=== PATIENT | male | born 1970 | race Caucasian/White ===

== ENCOUNTER → 2017-02-22 | Outpatient (CLI) | payer BC ==
--- NOTE | 2017-02-22 17:59 | Diagnostic Imaging Report ---
PROCEDURE: MRI right joint lower extremity without contrast. TECHNIQUE: Multiplanar, multisequence non contrast-enhanced MRI of the right lower extremity was accomplished. INDICATION: Twisted knee getting off lawnmower. Medial pain. FINDINGS: There is a large joint effusion present. There is a large area of loss of articulating cartilage along the medial femoral condyle and tibial plateau. There is subcortical edema as well. No definite cortical bony fracture demonstrated. Hypertrophic bony changes are present causing some peripheral displacement of the medial meniscus. The medial meniscus shows the posterior horn to be shortened consistent with probable chronic tear or previous surgery. There are a few small fragments noted within the articulating space. There is a 7 mm area of focal edema noted along the medial femoral condyle which probably is associated with a microfracture of the cortex, though no displacement is seen. The lateral meniscus appears normal. The lateral femoral condyle and tibial plateau are normal. The anterior and posterior cruciate ligaments are intact. Medial collateral ligament and lateral collateral ligament complex are intact. The patella is in good alignment with the trochlea. The quadriceps tendon and patellar ligament appear normal. No popliteal cyst demonstrated. The surrounding muscles appear normal. IMPRESSION: 1. Findings are consistent with chronic advanced osteoarthritic disease of the medial compartment. Large area of loss of chondral cartilage. There is a focal edema noted along the mid weightbearing portion of the femoral condyle which is suspicious for microfractures of the cortex. No large cortical fractures. 2. The medial meniscus is abnormal with blunting and fraying along the margin. There are several small loose bodies noted. 3. Large joint effusion without evidence of popliteal cyst. Dictated by: Dictated on workstation # [id number]
== END ==
LOC: RAD 16:56
DX: M23.331 Other meniscus derangements, other medial meniscus, right knee (principal); M17.11 Unilateral primary osteoarthritis, right knee; M25.461 Effusion, right knee
CPT/HCPCS: 73721

== ENCOUNTER 2017-06-10 17:58 | Inpatient (IN) | payer BC ==
[~2017-06-10] VITALS: Ht 176.5 cm; Wt 99.1 kg
[2017-06-10] MEDS ORDERED: NS 100 ML (IVPB) BAG IV ONE (18:45)
[2017-06-10] MEDS ORDERED: IOHEXOL 350 MG/ML 100 ML (OMNIPAQUE 350) VIAL IV ONE (18:45)
[2017-06-10] MEDS ORDERED: LACTATED RINGERS 1,000 ML IV ONE ×2 (18:55→20:14)
[2017-06-10 18:58] LABS: BASOPHILS % (AUTO) 0 % (0-10); EOSINOPHILS % (AUTO) 0 % (0-10); LYMPHOCYTES # (AUTO) 1.1 X 10^3 (1.0-4.0); LYMPHOCYTES % (AUTO) 5 % (12-44); MEAN CORPUSCULAR HEMOGLOBIN 30 PG (25-34); MEAN CORPUSCULAR HGB CONC 35 G/DL (32-36); MEAN CORPUSCULAR VOLUME 85 FL (80-99); MONOCYTES % (AUTO) 4 % (0-12); NEUTROPHILS # (AUTO) 19.4 X 10^3 (1.8-7.8); NEUTROPHILS % (AUTO) 90 % (42-75); PLATELET COUNT 205 10^3/uL (130-400); RED BLOOD COUNT 5.41 10^6/uL (4.35-5.85); RED CELL DISTRIBUTION WIDTH 13.5 % (10.0-14.5); WHITE BLOOD COUNT 21.4 10^3/uL (4.3-11.0)
--- NOTE | 2017-06-10 19:01 | ED Abdominal Pain ---
General Chief Complaint: Abdominal/GI Problems Stated Complaint: LOWER ABDOMINAL PAIN Nursing Triage Note: pt reports r lower abdominal pain since saturday. pt states he went to urgent care today and labs were drawn. pt reports he recieved a call that his white count was high. pt reports he was told he needed a ct scan. Sepsis Screen: Possible Sepsis Risk Source of Information: Patient History of Present Illness Time Seen By Provider: 18:28 Initial Comments PT ARRIVES VIA POV FROM HOME C/O LOWER ABDOMINAL PAIN SINCE Saturday06/08/17 PAIN HAS BEEN DOUBLING HIM OVER AT TIMES--NO PAIN AT REST, BUT IS VERY SORE TO TOUCH.ALSO HAVING SOME UPPER ABDOMINAL PAIN NOW WELL NO NAUSEA/VOMITING/DIARRHEA HAD NORMAL BM TODAY--NO BLACK/BLOODY/TARRY STOOLS HAS HAD DECREASED APPETITE--LAST FOOD INTAKE WAS 1800 LAST PM--ATE AT [facility]. HAS BEEN DRINKING WATER ALL DAY TODAY NO FEVER NO URINARY SYMPTOMS PT HAS HAD A NON-PRODUCTIVE COUGH X 12 DAYS--TAKING OTC MUCINEX NO CHEST PAIN OR SHORTNESS OF BREATH MOVEMENTS AND COUGHING INCREASE PAIN WAS SEEN AT URGENT CARE THIS AM AND WAS GIVEN A SHOT OF ANTIBIOTICS AND RX LEVAQUIN--HAS HAD ONE DOSE TODAY LAB WAS DRAWN AND PT WAS CALLED AROUND 1500 THIS AFTER NOON AND WAS TOLD HIS WBC WAS ELEVATED AND WAS SUPPOSED TO HAVE CT OF ABDOMEN DONE TOMORROW, BUT PAIN WAS WORSE TONIGHT, SO CAME TO ER NO HISTORY OF GI PROBLEMS PCP: [facility]. STORMY SAHNI Allergies and Home Medications Allergies Coded Allergies: No Known Drug Allergies (Unverified , 06/10/17) Review of Systems Constitutional: no symptoms reported, No chills, No diaphoresis, No fever EENTM: No Symptoms Reported Respiratory: See HPI, Cough, Denies Shortness of Air Cardiovascular: No Symptoms Reported, Denies Chest Pain Gastrointestinal: See HPI, Abdominal Pain, Denies Diarrhea, Denies Nausea (OFF AND ), Poor Appetite, Denies Poor Fluid Intake, Denies Vomiting Genitourinary: No Symptoms Reported Musculoskeletal: no symptoms reported Skin: no symptoms reported Psychiatric/Neurological: No Symptoms Reported Endocrine: No Symptoms Reported Hematologic/Lymphatic: No Symptoms Reported Past Doggdbt-Asugtg-Ylugtu Hx Patient Social History Alcohol Use: Occasionally Uses Recreational Drug Use: No Smoking Status: Never a Smoker (VAPE CIGARETTES + CHEWING TOBACCO) Type Used: Electronic/Vapor, Smokeless Tobacco 2nd Hand Smoke Exposure: No Recent Foreign Travel: No Contact w/Someone Who Travel: No Recent Infectious Disease Expo: No Physical Abuse: No Sexual Abuse: No Mistreated: No Fear: No Surgeries History of Surgeries: Yes (DENTAL IMPLANT) Respiratory History of Respiratory Disorde: No Cardiovascular History of Cardiac Disorders: No Neurological History of Neurological Disord: No Genitourinary History of Genitourinary Disor: No Gastrointestinal History of Gastrointestinal Di: No Musculoskeletal History of Musculoskeletal Dis: No Endocrine History of Endocrine Disorders: No HEENT History of HEENT Disorders: No Cancer History of Cancer: No Psychosocial History of Psychiatric Problem: No Suicide Risk Score: 0 Integumentary History of Skin or Integumenta: Yes (MRSA OF RIGHT HAND/FINGER--HOSPITALIZED X 19 DAYS--NO SURGERY) Blood Transfusions History of Blood Disorders: No Physical Exam Vital Signs VS - Last 72 Hours, by Label 06/10/17 18:37 Temp 99.7 Pulse 126 Resp 18 B/P (MAP) 121/77 Pulse Ox 97 Capillary Refill : Less Than 3 Seconds General Appearance: WD/WN, no apparent distress, other (SMILING, LAUGHING, JOKING. FEMALE LAYING ACROSS HIM ON ER CART. CHEWING GUM. LAYING OUTSTRETCHED, DOES NOT APPEAR TO BE IN ANY DISCOMFORT AT THIS TIME. ) HEENT: PERRL/EOMI Neck: normal inspection Respiratory: normal breath sounds, no respiratory distress, no accessory muscle use Cardiovascular: normal peripheral pulses, no edema, no JVD, no murmur, tachycardia Gastrointestinal: soft, no organomegaly, no pulsatile mass, abnormal bowel sounds (HIGH PITCHED, HYPERACTIVE), No distended, guarding, rebound, tenderness (DIFFUSE LOWER ABDOMINAL TENDERNESS AND PERIUMBILICAL TENDERNESS,MARKED TENDERNESS AND REBOUND IN SUPRAPUBIC AREA), No hernia, No mass Extremities: normal range of motion, non-tender, normal inspection, no pedal edema, no calf tenderness, normal capillary refill Back: no CVA tenderness Neurologic/Psychiatric: pressfitter II-XII nml as tested, no motor/sensory deficits, alert, normal mood/affect, oriented x 3 Skin: normal color, warm/dry Focused Exam Evaluation Lactate Level Laboratory Tests 06/10/17 19:02: Lactic Acid Level 0.97 Lactic Acid Level Laboratory Tests Test 06/10/17 19:02 Lactic Acid Level 0.97 MMOL/L (0.50-2.00) Progress/Results/Core Measures Results/Orders Lab Results Laboratory Tests Test 06/10/17 18:52 06/10/17 19:02 Range/Units White Blood Count 21.4 H 4.3-11.0 10^3/uL Red Blood Count 5.41 4.35-5.85 10^6/uL Hemoglobin 16.0 13.3-17.7 G/DL Hematocrit 46 40-54 % Mean Corpuscular Volume 85 80-99 FL Mean Corpuscular Hemoglobin 30 25-34 PG Mean Corpuscular Hemoglobin Concent 35 32-36 G/DL Red Cell Distribution Width 13.5 10.0-14.5 % Platelet Count 205 130-400 10^3/uL Mean Platelet Volume 12.0 H 7.4-10.4 FL Neutrophils (%) (Auto) 90 H 42-75 % Lymphocytes (%) (Auto) 5 L 12-44 % Monocytes (%) (Auto) 4 0-12 % Eosinophils (%) (Auto) 0 0-10 % Basophils (%) (Auto) 0 0-10 % Neutrophils # (Auto) 19.4 H 1.8-7.8 X 10^3 Lymphocytes # (Auto) 1.1 1.0-4.0 X 10^3 Monocytes # (Auto) 1.0 0.0-1.0 X 10^3 Eosinophils # (Auto) 0.0 0.0-0.3 10^3/uL Basophils # (Auto) 0.0 0.0-0.1 10^3/uL Neutrophils % (Manual) 82 % Lymphocytes % (Manual) 8 % Monocytes % (Manual) 3 % Eosinophils % (Manual) 0 % Basophils % (Manual) 0 % Band Neutrophils 7 % Blood Morphology Comment NORMAL Sodium Level 136 135-145 MMOL/L Potassium Level 3.6 3.6-5.0 MMOL/L Chloride Level 103 98-107 MMOL/L Carbon Dioxide Level 22 21-32 MMOL/L Anion Gap 11 5-14 MMOL/L Blood Urea Nitrogen 11 7-18 MG/DL Creatinine 0.94 0.60-1.30 MG/DL Estimat Glomerular Filtration Rate > 60 BUN/Creatinine Ratio 12 Glucose Level 116 H 70-105 MG/DL Calcium Level 9.3 8.5-10.1 MG/DL Total Bilirubin 1.8 H 0.1-1.0 MG/DL Aspartate Amino Transf (AST/SGOT) 13 5-34 U/L Alanine Aminotransferase (ALT/SGPT) 16 0-55 U/L Alkaline Phosphatase 60 40-136 U/L Total Protein 7.1 6.4-8.2 GM/DL Albumin 3.7 3.2-4.5 GM/DL Amylase Level 30 25-125 U/L Lipase 9 8-78 U/L Lactic Acid Level 0.97 0.50-2.00 MMOL/L My Orders Orders - BRYCE FERNANDO DO Ua Culture If Indicated (06/10/17 18:28) Saline Lock/Iv-Start (06/10/17 18:43) Ct Abd/Pelv W (Appendicitis) (06/10/17 18:43) Amylase (06/10/17 18:43) Cbc With Automated Diff (06/10/17 18:43) Comprehensive Metabolic Panel (06/10/17 18:43) Lactic Acid Analyzer (06/10/17 18:43) Lipase (06/10/17 18:43) Blood Culture (06/10/17 18:43) Acute Abd Series (06/10/17 18:43) Saline Lock/Iv-Start (06/10/17 18:43) Iohexol Injection (Omnipaque 350 Mg/Ml 1 (06/10/17 18:45) Ns (Ivpb) (Sodium Chloride 0.9% Ivpb Bag (06/10/17 18:45) Saline Lock/Iv-Start (06/10/17 18:55) Lactated Ringers (Lr 1000 Ml Iv Solution (06/10/17 18:55) Manual Differential (06/10/17 18:52) Medications Given in ED Current Medications Medications Dose Ordered Sig/Rubina Route Start Time Stop Time Status Last Admin Dose Admin Iohexol 100 ml ONCE ONCE IV 06/10/17 18:45 06/10/17 19:28 DC 06/10/17 19:20 100 ML Lactated Ringer's 1,000 ml @ 0 mls/hr Q0M ONCE IV 06/10/17 18:55 06/10/17 18:57 DC 06/10/17 19:03 0 MLS/HR Lactated Ringer's 1,000 ml @ 0 mls/hr Q0M ONCE IV 06/10/17 20:14 06/10/17 20:17 DC 06/10/17 20:33 0 MLS/HR Piperacillin Sod/ Tazobactam Sod 4.5 gm/Sodium Chloride 100 ml @ 200 mls/hr ONCE ONCE IV 06/10/17 20:15 06/10/17 20:44 DC 06/10/17 20:32 200 MLS/HR Sodium Chloride 100 ml ONCE ONCE IV 06/10/17 18:45 06/10/17 19:28 DC 06/10/17 19:20 80 ML Vital Signs/I&O Vital Sign - Last 12Hours 06/10/17 18:37 Temp 99.7 Pulse 126 Resp 18 B/P (MAP) 121/77 Pulse Ox 97 Blood Pressure Mean: 92 Progress Note : Progress Note NO DETERIORATION IN PT'S CONDITION DURING ER STAY Diagnostic Imaging Comments CT ABDOMEN/PELVIS--MARKED INFLAMMATORY CHANGES OF SIGMOID COLON WITH MARKED SIGMOID DIVERTICULITIS WITH PERFORATION AND MULTIPLE ABSCESSES--PER RADIOLOGIST REPORT @ 2009 Reviewed: Reviewed by Me Departure Communication (Admissions) Progress Notes --PAGED/SPOKE WITH DR. HERNANDEZ, ACCEPTS PT FOR ADMIT 2049--DR. HERNANDEZ HERE TO SEE PT, CARE TURNED OVER TO HIM Impression Impression: Primary Impression: Diverticulitis of intestine with perforation and abscess Additional Impression: Sepsis Disposition: 09 ADMITTED INPATIENT Condition: Stable Admissions Decision to Admit Reason: Admit from ER (General) Decision to Admit/Date: Jun 10, 2017 Time/Decision to Admit Time: 20:15 Departure-Patient Inst. Referrals: NO,LOCAL PHYSICIAN (PCP/Family) Primary Care Physician BRYCE FERNANDO DO Jun 10, 2017 19:01
[2017-06-10 19:05] LABS: ALANINE AMINOTRANSFERASE 16 U/L (0-55); ALBUMIN 3.7 GM/DL (3.2-4.5); AMYLASE 30 U/L (25-125); ANION GAP 11 MMOL/L (5-14); ASPARTATE AMINO TRANSFERASE 13 U/L (5-34); BILIRUBIN,TOTAL 1.8 MG/DL (0.1-1.0); BLOOD UREA NITROGEN 11 MG/DL (7-18); BUN/CREATININE RATIO 12; CALCIUM 9.3 MG/DL (8.5-10.1); CARBON DIOXIDE 22 MMOL/L (21-32); CHLORIDE 103 MMOL/L (98-107); CREATININE SERUM 0.94 MG/DL (0.60-1.30); GFR ESTIMATED > 60; GLUCOSE 116 MG/DL (70-105); LIPASE 9 U/L (8-78); POTASSIUM 3.6 MMOL/L (3.6-5.0); SODIUM 136 MMOL/L (135-145); TOTAL PROTEIN 7.1 GM/DL (6.4-8.2)
[2017-06-10 19:15] LABS: BAND NEUTROPHILS 7 %; BASOPHILS % (MANUAL) 0 %; EOSINOPHILS % (MANUAL) 0 %; LYMPHOCYTES % (MANUAL) 8 %; NEUTROPHILS % (MANUAL) 82 %
--- NOTE | 2017-06-10 19:52 | Diagnostic Imaging Report ---
INDICATION: Right lower quadrant abdominal pain and groin pain x2 days. TECHNIQUE: Single view chest with supine and upright radiographs of the abdomen. CORRELATION STUDY: None FINDINGS: Frontal radiograph of the chest demonstrates no acute abnormality. Prominent gas-filled loops of bowel are noted likely an ileus pattern. The known areas of extraluminal gas on CT imaging with free intraperitoneal air are not well appreciated on this examination. Contrast material in the genitourinary system. IMPRESSION: 1. Negative for acute cardiopulmonary abnormality. 2. Gas-filled loops of bowel are noted compatible with ileus pattern. The known free intraperitoneal air on CT imaging obtained just prior to this study is not appreciated on the radiographic examination. Dictated by: Dictated on workstation # [id number]
--- NOTE | 2017-06-10 19:59 | Diagnostic Imaging Report ---
PROCEDURE: CT abdomen and pelvis with contrast, rule out appendicitis. TECHNIQUE: Multiple contiguous axial images were obtained through the abdomen and pelvis after the administration of intravenous contrast. INDICATION: Right lower quadrant and groin pain x2 days. CORRELATION STUDY: None. FINDINGS: LOWER THORAX: Minimal areas of atelectasis about the lung bases. Heart size appearing normal. LIVER: Slight heterogeneous low-attenuation reflective of some degree of fatty infiltration without focal lesion. GALLBLADDER: Present and unremarkable. No bile duct dilatation. SPLEEN: Unremarkable. PANCREAS: Unremarkable. ADRENAL GLANDS: Unremarkable. KIDNEYS: Normal configuration. No calcification or obstruction. ABDOMINAL AORTA: Unremarkable, nonaneurysmal. A few small shotty subcentimeter central retroperitoneal and scattered mesenteric lymph nodes. GASTROINTESTINAL TRACT: Marked inflammatory changes of the sigmoid colon which is diffusely edematous. Rather marked pericolonic inflammatory changes and haziness is noted. Features likely attributed to focal sigmoid diverticulitis versus colitis. There are multifocal areas of extraluminal gas collection compatible with perforation. This is most pronounced around the sigmoid colon but there are some gas bubbles in the upper abdomen as well. There are areas of what appears to be likely developing abscesses. Largest does contain some gas located just above the level of the bladder dome currently measuring 5.2 x 3.2 cm. Appendix is visualized in the right lower quadrant and contains probable small appendicoliths, but otherwise appears to be unremarkable. URINARY BLADDER: Somewhat thickwalled likely reactive owing to the adjacent inflammatory changes in the colon. REPRODUCTIVE: Prostate gland and seminal vesicles are slightly prominent. Inflammatory changes and fluid is just adjacent to the seminal vesicles. OSSEOUS STRUCTURES: No acute abnormality. IMPRESSION: 1. Marked inflammatory changes of the sigmoid colon likely reflective of rather marked sigmoid diverticulitis. Findings compatible with perforation of multifocal areas of small gas collections in and around this area as well as in the upper abdomen. There also appears to be developing multifocal pockets of abscess formation. Dictated by: Dictated on workstation # [id number]
[2017-06-10] MEDS ORDERED: fentaNYL INJECTION 100 MCG/2 ML AMP IVP STA (20:14)
[2017-06-10] MEDS ORDERED: PIPERACILLIN SODIUM/TAZOBACTAM 4.5 GM in NS (IVPB) 100 ML IV ONE (20:15)
[2017-06-10 21:15] VITALS: BP 92/53
--- NOTE | 2017-06-10 21:30 | History & Physicial ---
History of Present Illness History of Present Illness Reason for visit/HPI increasing lower abdominal pain over the past 48 hours, resulting in ER visit. CT scan confirms complicated sigmoid diverticulitis with microperforation and an early pelvic abscess Date of Admission Jun 10, 2017 at 8:15 pm Date Seen by Provider: Jun 10, 2017 Time Seen by Provider: 21:27 I consulted on this patient on 06/10/17 21:26 Attending Physician Garth Hernandez MD Admitting Physician No,Local Physician Consult Allergies and Home Medications Allergies Coded Allergies: No Known Drug Allergies (Unverified , 06/10/17) Past Czhoxqn-Ylbdvf-Hinskr Hx Patient Social History Marrital Status: Employed/Student: employed Alcohol Use: Occasionally Uses Recreational Drug Use: No Smoking Status: Never a Smoker (VAPE CIGARETTES + CHEWING TOBACCO) Type Used: Electronic/Vapor, Smokeless Tobacco 2nd Hand Smoke Exposure: No Recent Foreign Travel: No Contact w/other who traveled: No Recent Infectious Disease Expo: No Surgeries Yes (DENTAL IMPLANT) Respiratory No Cardiovascular No Neurological No Genitourinary No Gastrointestinal No Musculoskeletal No Endocrine History of Endocrine Disorders: No HEENT History of HEENT Disorders: No Cancer No Psychosocial History of Psychiatric Problem: No Integumentary History of Skin or Integumenta: Yes (MRSA OF RIGHT HAND/FINGER--HOSPITALIZED X 19 DAYS--NO SURGERY) Blood Transfusions History of Blood Disorders: No Constitutional: fever, malaise EENTM: no symptoms reported Respiratory: no symptoms reported Cardiovascular: no symptoms reported Gastrointestinal: see HPI Genitourinary: frequency Musculoskeletal: no symptoms reported Skin: no symptoms reported Psychiatric/Neurological: No Symptoms Reported Physical Exam Vital Signs Vital Sign - Last 12Hours 06/10/17 18:37 Temp 99.7 Pulse 126 Resp 18 B/P (MAP) 121/77 Pulse Ox 97 Capillary Refill : Less Than 3 Seconds General Appearance: Anxious, Moderate Distress HEENT: Normal ENT Inspection Neck: Normal Inspection Gastrointestinal: Tenderness, Other Rectal: Deferred Extremity: Normal Inspection Neurologic/Psychiatric: Alert, Oriented x3 Skin: Warm/Dry Comments localized tenderness over the lower abdomen. No evidence of generalized peritonitis. No hernia Assessment/Plan Assessment and Plan gentleman with complicated sigmoid diverticulitis and microperforation. Evolving pelvic abscess. Reasonable to manage nonoperatively, using IV antibiotics and close observation. Follow-up CT scan in 48-72 hours would be reasonable. Problems: GARTH HERNANDEZ MD Jun 10, 2017 9:30 pm
[2017-06-10] MEDS ORDERED: ONDANSETRON 4 MG/2 ML (SDV) Z0FRAN IVP PRN (21:45)
[2017-06-10 21:55] LABS: BILIRUBIN,URINE NEGATIVE (NEGATIVE); KETONES,URINE 3+ (NEGATIVE); LEUKOCYTE ESTERASE ,URINE NEGATIVE (NEGATIVE); NITRITE,URINE NEGATIVE (NEGATIVE); PH,URINE 7 (5-9); PROTEIN,URINE 2+ (NEGATIVE); UROBILINOGEN,URINE 4 MG/DL (NORMAL)
[2017-06-10 22:03] LABS: WBC,URINE 0-2 /HPF
[2017-06-10] MEDS: D5 1/2 NS W/KCL 10 MEQ/L 1,000 ML IV SCH (22:19)
[2017-06-10] MEDS: ACETAMINOPHEN 500 MG TAB (TYLENOL) PO PRN (23:58)
[2017-06-11] VITALS (7 sets, daily range): BP systolic 104–142; BP diastolic 61–80
[2017-06-11] MEDS: PIPERACILLIN SODIUM/TAZOBACTAM 4.5 GM in NS (IVPB) 100 ML IV SCH ×3 (01:51→18:26)
[2017-06-11] MEDS: D5 1/2 NS W/KCL 10 MEQ/L 1,000 ML IV SCH ×4 (05:09→20:08)
--- NOTE | 2017-06-11 06:41 | Progress Note (SOAP) ---
Subjective Date Seen by Provider: Jun 11, 2017 Time Seen by Provider: 06:20 Subjective/Events-last exam abdominal pain persists, but to a lesser degree. Feels the urge to defecate with no stools being passed. Review of Systems General: Malaise HEENT: No Head Aches, No Eye Pain, No Ear Pain, No Dysphasia, No Sinus Congestion, No Post Nasal Drip, No Sore Throat Pulmonary: No Dyspnea, No Cough, No Pleuritic Chest Pain Cardiovascular: No: Chest Pain, Palpitations, Orthopnea, Paroxysmal Noc. Dyspnea, Edema, Lt Headedness Gastrointestinal: Abdominal Pain, Constipation Genitourinary: No Dysuria, No Frequency, No Incontinence, No Hematuria, No Retention Musculoskeletal: No: other, neck pain, shoulder pain, arm pain, back pain, hand pain, leg pain, foot pain Neurological: No: Weakness, Numbness, Incoordination, Change in speech, Confusion, Seizures, Other Objective Exam Vital Signs Date Time Temp Pulse Resp B/P (MAP) Pulse Ox O2 Delivery O2 Flow Rate FiO2 06/11/17 04:10 98.0 105 20 104/63 95 Room Air 06/11/17 02:03 98.7 98 20 128/72 97 Room Air 06/11/17 01:00 104 06/11/17 00:28 99.8 06/11/17 00:14 100.0 114 20 120/74 95 Room Air 06/10/17 23:58 100.0 06/10/17 21:33 101.3 118 12 96 06/10/17 21:28 Room Air 06/10/17 21:15 98.4 120 18 92/53 98 Room Air 06/10/17 18:37 99.7 126 18 121/77 97 Capillary Refill : Less Than 3 Seconds General Appearance: Mild Distress HEENT: Normal ENT Inspection Neck: Normal Inspection Respiratory: Lungs Clear Cardiovascular: Tachycardia Gastrointestinal: tenderness Extremity: Normal Inspection Neurologic/Psychiatric: Alert, Oriented x3 Skin: Warm/Dry Other comments localized tenderness over the suprapubic region and the left lower quadrant of the abdomen. No evidence of generalized peritonitis. Results Lab Laboratory Tests 06/10/17 18:52: White Blood Count 21.4H, Red Blood Count 5.41, Hemoglobin 16.0, Hematocrit 46, Mean Corpuscular Volume 85, Mean Corpuscular Hemoglobin 30, Mean Corpuscular Hemoglobin Concent 35, Red Cell Distribution Width 13.5, Platelet Count 205, Mean Platelet Volume 12.0H, Neutrophils (%) (Auto) 90H, Lymphocytes (%) (Auto) 5L, Monocytes (%) (Auto) 4, Eosinophils (%) (Auto) 0, Basophils (%) (Auto) 0, Neutrophils # (Auto) 19.4H, Lymphocytes # (Auto) 1.1, Monocytes # (Auto) 1.0, Eosinophils # (Auto) 0.0, Basophils # (Auto) 0.0, Neutrophils % (Manual) 82, Lymphocytes % (Manual) 8, Monocytes % (Manual) 3, Eosinophils % (Manual) 0, Basophils % (Manual) 0, Band Neutrophils 7, Blood Morphology Comment NORMAL, Sodium Level 136, Potassium Level 3.6, Chloride Level 103, Carbon Dioxide Level 22, Anion Gap 11, Blood Urea Nitrogen 11, Creatinine 0.94, Estimat Glomerular Filtration Rate > 60, BUN/Creatinine Ratio 12, Glucose Level 116H, Calcium Level 9.3, Total Bilirubin 1.8H, Aspartate Amino Transf (AST/SGOT) 13, Alanine Aminotransferase (ALT/SGPT) 16, Alkaline Phosphatase 60, Total Protein 7.1, Albumin 3.7, Amylase Level 30, Lipase 9 06/10/17 19:02: Lactic Acid Level 0.97 06/10/17 21:41: Urine Color YELLOW, Urine Clarity CLEAR, Urine pH 7, Urine Specific [place] 1.005L, Urine Protein 2+H, Urine Glucose (UA) NEGATIVE, Urine Ketones 3+H, Urine Nitrite NEGATIVE, Urine Bilirubin NEGATIVE, Urine Urobilinogen 4H, Urine Leukocyte Esterase NEGATIVE, Urine RBC (Auto) 3+H, Urine RBC 5-10H, Urine WBC 0- 2, Urine Crystals NONE, Urine Bacteria NONE, Urine Casts NONE, Urine Mucus NEGATIVE, Urine Culture Indicated NO Assessment/Plan Assessment/Plan Assess & Plan/Chief Complaint gentleman with complicated sigmoid diverticulitis. We'll continue IV antibiotics and monitor closely. Will discuss with our interventional radiologist, regarding any intervention for percutaneous drainage. Final Diagnosis sigmoid diverticulitis with microperforation. Clinical Quality Measures DVT/VTE Risk/Contraindication: Risk Factor Score Per Nursin RFS Level Per Nursing on Admit: 2=Moderate GARTH HERNANDEZ MD Jun 11, 2017 6:41 am
[2017-06-11 06:51] LABS: BASOPHILS % (AUTO) 0 % (0-10); EOSINOPHILS % (AUTO) 0 % (0-10); LYMPHOCYTES # (AUTO) 0.7 X 10^3 (1.0-4.0); LYMPHOCYTES % (AUTO) 4 % (12-44); MEAN CORPUSCULAR HEMOGLOBIN 30 PG (25-34); MEAN CORPUSCULAR HGB CONC 35 G/DL (32-36); MEAN CORPUSCULAR VOLUME 86 FL (80-99); MEAN PLATELET VOLUME 12.2 FL (7.4-10.4); MONOCYTES # (AUTO) 0.7 X 10^3 (0.0-1.0); MONOCYTES % (AUTO) 4 % (0-12); NEUTROPHILS # (AUTO) 15.3 X 10^3 (1.8-7.8); NEUTROPHILS % (AUTO) 91 % (42-75); PLATELET COUNT 183 10^3/uL (130-400); RED BLOOD COUNT 5.11 10^6/uL (4.35-5.85); RED CELL DISTRIBUTION WIDTH 13.6 % (10.0-14.5); WHITE BLOOD COUNT 16.8 10^3/uL (4.3-11.0)
[2017-06-11 07:11] LABS: ALANINE AMINOTRANSFERASE 12 U/L (0-55); ALBUMIN 3.3 GM/DL (3.2-4.5); ANION GAP 9 MMOL/L (5-14); ASPARTATE AMINO TRANSFERASE 12 U/L (5-34); BILIRUBIN,TOTAL 1.8 MG/DL (0.1-1.0); BLOOD UREA NITROGEN 8 MG/DL (7-18); BUN/CREATININE RATIO 9; CALCIUM 8.9 MG/DL (8.5-10.1); CARBON DIOXIDE 23 MMOL/L (21-32); CHLORIDE 106 MMOL/L (98-107); CREATININE SERUM 0.87 MG/DL (0.60-1.30); GFR ESTIMATED > 60; GLUCOSE 154 MG/DL (70-105); POTASSIUM 3.8 MMOL/L (3.6-5.0); SODIUM 138 MMOL/L (135-145); TOTAL PROTEIN 6.3 GM/DL (6.4-8.2)
[2017-06-11] MEDS ORDERED: INFLUENZA TRIvalent 2017-2018 0.5 ML/45 MCG SYR IM ONE (07:30)
[2017-06-11] MEDS ORDERED: IBUP-30 PO (08:12)
[2017-06-11] MEDS: fentaNYL INJECTION 100 MCG/2 ML AMP IV PRN (08:48)
[2017-06-11] MEDS: PANTOPRAZOLE 40 MG/10 ML (PROTONIX) VIAL IV SCH (08:48)
[2017-06-12] VITALS: BP 105/56
[2017-06-12] MEDS: PIPERACILLIN SODIUM/TAZOBACTAM 4.5 GM in NS (IVPB) 100 ML IV SCH ×3 (02:17→18:44)
[2017-06-12] MEDS: D5 1/2 NS W/KCL 10 MEQ/L 1,000 ML IV SCH ×4 (03:03→23:02)
[2017-06-12 08:00] VITALS: BP 115/77
[2017-06-12 09:17] VITALS: BP 115/77
[2017-06-12] MEDS: PANTOPRAZOLE 40 MG/10 ML (PROTONIX) VIAL IV SCH (09:17)
[2017-06-12] MEDS: ACETAMINOPHEN 500 MG TAB (TYLENOL) PO PRN ×2 (09:24→20:07)
--- NOTE | 2017-06-12 11:41 | Progress Note (SOAP) ---
Subjective Date Seen by Provider: Jun 12, 2017 Time Seen by Provider: 11:35 Subjective/Events-last exam suprapubic pressure and pain much improved. Afebrile. Review of Systems General: No Chills, No Night Sweats, No Fatigue, No Malaise HEENT: No Head Aches, No Eye Pain, No Ear Pain, No Dysphasia, No Sinus Congestion, No Post Nasal Drip, No Sore Throat Pulmonary: No Dyspnea, No Cough, No Pleuritic Chest Pain Cardiovascular: No: Chest Pain, Palpitations, Orthopnea, Paroxysmal Noc. Dyspnea, Edema, Lt Headedness Gastrointestinal: Abdominal Pain Genitourinary: Frequency Musculoskeletal: No: other, neck pain, shoulder pain, arm pain, back pain, hand pain, leg pain, foot pain Neurological: No: Weakness, Numbness, Incoordination, Change in speech, Confusion, Seizures, Other Objective Exam Vital Signs Date Time Temp Pulse Resp B/P (MAP) Pulse Ox O2 Delivery O2 Flow Rate FiO2 06/12/17 08:00 98.1 86 20 115/77 96 Room Air 06/12/17 00:00 98.6 95 20 105/56 95 Room Air 06/11/17 20:01 97.7 91 18 142/80 99 Room Air 06/11/17 16:00 97.8 86 18 130/67 95 Room Air 06/11/17 12:00 99.7 112 22 131/66 99 Room Air Capillary Refill : Less Than 3 Seconds General Appearance: Anxious HEENT: Normal ENT Inspection Neck: Normal Inspection Respiratory: Lungs Clear Cardiovascular: Regular Rate, Rhythm Gastrointestinal: soft Extremity: Normal Inspection Neurologic/Psychiatric: Alert, Oriented x3 Skin: Warm/Dry Other comments localized, minimal tenderness over the suprapubic region and left lower quadrant of the abdomen Results Lab Microbiology 06/10/17 Blood Culture - Preliminary, Resulted No growth Assessment/Plan Assessment/Plan Assess & Plan/Chief Complaint gentleman with complicated sigmoid diverticulitis. We'll continue IV antibiotics and monitor closely. Will discuss with our interventional radiologist, regarding any intervention for percutaneous drainage. complicated sigmoid diverticulitis. We'll repeat a CT scan tomorrow. If no drainable abscess encountered, slowly advance diet. Final Diagnosis sigmoid diverticulitis with microperforation Clinical Quality Measures DVT/VTE Risk/Contraindication: Risk Factor Score Per Nursin RFS Level Per Nursing on Admit: 2=Moderate GARTH HERNANDEZ MD Jun 12, 2017 11:41 am
[2017-06-12 15:27] VITALS: BP 131/76
[2017-06-12 23:41] VITALS: BP 116/82
[2017-06-13] VITALS (11 sets, daily range): BP systolic 118–134; BP diastolic 71–87
[2017-06-13] MEDS: PIPERACILLIN SODIUM/TAZOBACTAM 4.5 GM in NS (IVPB) 100 ML IV SCH ×3 (02:06→18:02)
[2017-06-13] MEDS: fentaNYL INJECTION 100 MCG/2 ML AMP IV PRN ×2 (06:51→21:44)
[2017-06-13] MEDS: PANTOPRAZOLE 40 MG/10 ML (PROTONIX) VIAL IV SCH (08:25)
[2017-06-13] MEDS ORDERED: IOHEXOL 350 MG/ML 100 ML (OMNIPAQUE 350) VIAL IV ONE (08:45)
[2017-06-13] MEDS ORDERED: NS 100 ML (IVPB) BAG IV ONE (08:45)
--- NOTE | 2017-06-13 09:33 | Progress Note (SOAP) ---
Subjective Date Seen by Provider: Jun 13, 2017 Time Seen by Provider: 09:24 Subjective/Events-last exam suprapubic pain much improved. Intermittent, less severe pain over the right lower quadrant. Afebrile. CT scan and CBC pending Review of Systems General: No Chills, No Night Sweats, No Fatigue, No Malaise HEENT: No Head Aches, No Eye Pain, No Ear Pain, No Dysphasia, No Sinus Congestion, No Post Nasal Drip, No Sore Throat Pulmonary: No Dyspnea, No Cough, No Pleuritic Chest Pain Cardiovascular: No: Chest Pain, Palpitations, Orthopnea, Paroxysmal Noc. Dyspnea, Edema, Lt Headedness Gastrointestinal: Abdominal Pain Genitourinary: Frequency Musculoskeletal: No: other, neck pain, shoulder pain, arm pain, back pain, hand pain, leg pain, foot pain Neurological: No: Weakness, Numbness, Incoordination, Change in speech, Confusion, Seizures, Other Objective Exam Vital Signs Date Time Temp Pulse Resp B/P (MAP) Pulse Ox O2 Delivery O2 Flow Rate FiO2 06/12/17 23:41 97.3 85 20 116/82 97 Room Air 06/12/17 15:27 97.8 85 18 131/76 95 Room Air 06/12/17 10:00 98.1 Capillary Refill : Less Than 3 Seconds General Appearance: No Apparent Distress HEENT: Normal ENT Inspection Neck: Normal Inspection Respiratory: Lungs Clear Cardiovascular: Regular Rate, Rhythm Gastrointestinal: non tender, soft Extremity: Normal Inspection Neurologic/Psychiatric: Alert, Oriented x3 Skin: Warm/Dry Results Lab Microbiology 06/10/17 Blood Culture - Preliminary, Resulted No growth Assessment/Plan Assessment/Plan Assess & Plan/Chief Complaint gentleman with complicated sigmoid diverticulitis. We'll continue IV antibiotics and monitor closely. Will discuss with our interventional radiologist, regarding any intervention for percutaneous drainage. complicated sigmoid diverticulitis. We'll repeat a CT scan tomorrow. If no drainable abscess encountered, slowly advance diet. complicated sigmoid diverticulitis. Will review CT scan. If defined abscess encountered, percutaneous drainage would be arranged. Final Diagnosis sigmoid diverticulitis with microperforation Clinical Quality Measures DVT/VTE Risk/Contraindication: Risk Factor Score Per Nursin RFS Level Per Nursing on Admit: 2=Moderate GARTH HERNANDEZ MD Jun 13, 2017 9:33 am
[2017-06-13] MEDS: D5 1/2 NS W/KCL 10 MEQ/L 1,000 ML IV SCH ×3 (10:06→18:02)
[2017-06-13 10:07] LABS: BASOPHILS % (AUTO) 0 % (0-10); EOSINOPHILS # (AUTO) 0.2 10^3/uL (0.0-0.3); EOSINOPHILS % (AUTO) 2 % (0-10); LYMPHOCYTES # (AUTO) 1.2 X 10^3 (1.0-4.0); LYMPHOCYTES % (AUTO) 12 % (12-44); MEAN CORPUSCULAR HEMOGLOBIN 30 PG (25-34); MEAN CORPUSCULAR HGB CONC 35 G/DL (32-36); MEAN CORPUSCULAR VOLUME 86 FL (80-99); MEAN PLATELET VOLUME 10.9 FL (7.4-10.4); MONOCYTES # (AUTO) 0.7 X 10^3 (0.0-1.0); MONOCYTES % (AUTO) 7 % (0-12); NEUTROPHILS # (AUTO) 8.1 X 10^3 (1.8-7.8); NEUTROPHILS % (AUTO) 79 % (42-75); PLATELET COUNT 263 10^3/uL (130-400); RED BLOOD COUNT 4.77 10^6/uL (4.35-5.85); RED CELL DISTRIBUTION WIDTH 13.3 % (10.0-14.5); WHITE BLOOD COUNT 10.2 10^3/uL (4.3-11.0)
--- NOTE | 2017-06-13 14:43 | Diagnostic Imaging Report ---
PROCEDURE: CT abdomen and pelvis with contrast. TECHNIQUE: Multiple contiguous axial images were obtained through the abdomen and pelvis after administration of intravenous contrast. INDICATION: Followup sigmoid diverticulitis with microperforation. 100 mL of Omnipaque 350 is administered intravenously. COMPARISON: 06/10/2017. FINDINGS: There is minimal atelectasis suggested in the right lower lobe. The liver, the spleen, the gallbladder, and the pancreas and adrenal glands appear unremarkable. The kidneys have symmetric enhancement and contrast excretion. There is no hydronephrosis. There are pockets of fluid measuring 3.6 x 1.7 cm with peripheral enhancement seen deep to a distal ileal loop in the upper aspect of the pelvis in the midline posteriorly. In addition, another collection measuring 2.4 x 1.5 cm is also seen posteriorly in the right side of the pelvis at the upper sacrum level containing an air bubble. There is another pocket of fluid with air bubble seen measuring 4.8 x 4 cm with the maximum craniocaudal dimension of 1.2 cm noted just above the bladder with an extension into the vesicorectal pouch. This has not significantly changed in size compared to the previous exam. They appear to be more well delineated and walled off at this time. The adjacent inflamed sigmoid colon demonstrates persistent significant thickening, inflammation, and numerous diverticula. Multiple diverticula are seen in the descending colon without significant inflammation. There is a small umbilical fat-containing hernia. The abdominal aorta is normal in caliber. No para-aortic significantly enlarged lymph node is seen. The osseous structures demonstrate prominent degenerative changes in the lower lumbar spine. IMPRESSION: 1. Persistent significant thickening in the sigmoid colon with prominent inflammation in the lower abdomen and pelvis compatible with diverticulitis and microperforation. 2. There are three pockets of fluid the in the pelvis that appear better delineated at this time with surrounding enhancement suggestive of small abscesses. These collections are not significantly changed in size compared to 06/10/2017. This study was reviewed and discussed with Dr. Kelly at the time of dictation. Dictated by: Dictated on workstation # [id number]
[2017-06-13] MEDS ORDERED: MIDAZOLAM 2 MG/2 ML (VERSED) VIAL ONE (15:56)
[2017-06-13] MEDS ORDERED: LIDOCAINE 1% INJ 20 ML (XYLOCAINE) VIAL ONE (15:56)
[2017-06-13] MEDS ORDERED: NS IV 1000 ML 1,000 ML ONE (15:57)
--- NOTE | 2017-06-13 17:04 | Pre-Op Note & Conscious Sedat ---
Pre-Operative Progress Note H&P Reviewed The H&P was reviewed, patient examined and no changes noted. Date H&P Reviewed: Jun 13, 2017 Time H&P Reviewed: 15:00 Pre-Op Diagnosis: pelvic abscess Conscious Sedation Pre-Proced Time Reviewed: 15:00 ASA Class: 2 Airway Mallampati Classification: ([place] appropriate class) I. II. III, IV Lungs Heart ASA score ASA 1: a normal healthy patient ASA 2: a patient with a mild systemic disease (mid diabetes, controlled hypertension, obesity ASA 3: a patient with a severe systemic disease that limits activity (angina , COPD, prior Myocardial infarction) ASA 4: a patient with an incapacitating disease that is a constant threat to life (CHF, renal failure) ASA 5: a moribund patient not expected to survive 24 hrs. (ruptured aneurysm) ASA 6: a declared brain patient whose organs are being harvested. For emergent operations, add the letter E after the classification Grade 2 Sedation Plan: Analgesia Note The patient is an appropriate candidate to undergo the planned procedure, sedation, and anesthesia. The patient immediately re-assessed prior to indication. RONALD HARTLEY MD Jun 13, 2017 17:04
[2017-06-13] MEDS ORDERED: fentaNYL INJECTION 100 MCG/2 ML AMP IVP PRN (17:15)
[2017-06-13] MEDS ORDERED: NS IV 1000 ML 1,000 ML IV ONE (17:15)
[2017-06-13] MEDS ORDERED: MIDAZOLAM 10 MG/2 ML (VERSED) VIAL IVP ONE (17:15)
[2017-06-13] MEDS ORDERED: LIDOCAINE 1% INJ 20 ML (XYLOCAINE) VIAL INJ ONE (17:15)
[2017-06-13] MEDS ORDERED: fentaNYL INJECTION 100 MCG/2 ML AMP IVP ONE (17:30)
--- NOTE | 2017-06-13 17:40 | Diagnostic Imaging Report ---
EXAMINATION: CT-guided drain placement. Pelvis. INDICATION: Pelvic abscess. The patient's vital signs, cardiac rhythm, and pulse oximetry with observed throughout the procedure by qualified nursing personnel. Sedation/medications: Versed 1.5 mg and fentanyl 100 mcg IV for conscious sedation for from 45 minutes. This is administered due to the painful nature of this procedure. CONSENT: Informed consent was obtained from the patient. The risks, benefits, potential complications and alternatives were reviewed and all questions answered to the patient's satisfaction. FINDINGS: Pelvic abscess from diverticulitis PROCEDURE: After maximal sterile barrier preparation and draping, 1% lidocaine was utilized for local anesthesia. With the patient in supine position, right anterior lateral approach was selected. A 19-gauge Yueh sheathed needle was introduced utilizing CT guidance into the pelvic abscess. CT images confirm appropriate positioning. After standard over a guidewire exchange technique and after serial dilatation, a 10 Syrian drain is placed and distal loop formed in the collection. A 5 ml of purulent fluid is aspirated and sent to microbiology. The drainage catheter is connected to gravity draining bag. The patient tolerated the procedure well with no immediate complications. IMPRESSION: Successful CT-guided, 10 Syrian, drain placement in pelvic abscess. Dictated by: Dictated on workstation # [id number]
[2017-06-13] MEDS: CATHETER FLUSH 10 ML SYR IV SCH (21:40)
[2017-06-14 00:15] VITALS: BP 123/84
[2017-06-14 01:10] VITALS: BP 123/84
[2017-06-14] MEDS: D5 1/2 NS W/KCL 10 MEQ/L 1,000 ML IV SCH ×2 (01:43→16:36)
[2017-06-14] MEDS: PIPERACILLIN SODIUM/TAZOBACTAM 4.5 GM in NS (IVPB) 100 ML IV SCH ×3 (01:48→18:11)
[2017-06-14 08:00] VITALS: BP 122/79
[2017-06-14] MEDS: PANTOPRAZOLE 40 MG/10 ML (PROTONIX) VIAL IV SCH (09:30)
[2017-06-14] MEDS: CATHETER FLUSH 10 ML SYR IV SCH ×2 (09:30→20:32)
--- NOTE | 2017-06-14 12:16 | Progress Note (SOAP) ---
Subjective Date Seen by Provider: Jun 14, 2017 Time Seen by Provider: 12:13 Subjective/Events-last exam Suprapubic discomfort resolved. Percutaneous drainage of pelvic abscess yesterday, Gram negative rods on stain. Afebrile, WCC normal. Review of Systems General: No Chills, No Night Sweats, No Fatigue, No Malaise HEENT: No Head Aches, No Eye Pain, No Ear Pain, No Dysphasia, No Sinus Congestion, No Post Nasal Drip, No Sore Throat Pulmonary: No Dyspnea, No Cough, No Pleuritic Chest Pain Cardiovascular: No: Chest Pain, Palpitations, Orthopnea, Paroxysmal Noc. Dyspnea, Edema, Lt Headedness Gastrointestinal: Diarrhea Genitourinary: No Dysuria, No Frequency, No Incontinence, No Hematuria, No Retention Musculoskeletal: No: other, neck pain, shoulder pain, arm pain, back pain, hand pain, leg pain, foot pain Neurological: No: Weakness, Numbness, Incoordination, Change in speech, Confusion, Seizures, Other Objective Exam Vital Signs Date Time Temp Pulse Resp B/P (MAP) Pulse Ox O2 Delivery O2 Flow Rate FiO2 06/14/17 08:00 98.0 83 18 122/79 95 Room Air 06/14/17 01:10 98.5 75 18 123/84 98 Nasal Cannula 2.00 06/14/17 00:15 98.5 75 18 123/84 98 Nasal Cannula 2.00 06/13/17 20:00 Nasal Cannula 2.00 06/13/17 16:50 80 18 130/71 97 Nasal Cannula 2.00 06/13/17 16:45 81 18 125/80 97 Nasal Cannula 2.00 06/13/17 16:40 68 18 118/84 97 Nasal Cannula 2.00 06/13/17 16:35 78 18 123/84 97 Nasal Cannula 2.00 06/13/17 16:30 74 18 120/84 97 Nasal Cannula 2.00 06/13/17 16:25 80 18 120/76 97 Nasal Cannula 2.00 06/13/17 16:20 74 18 118/76 96 Nasal Cannula 2.00 06/13/17 16:15 72 18 120/84 96 Nasal Cannula 2.00 06/13/17 16:10 74 18 134/87 97 Nasal Cannula 2.00 06/13/17 15:51 97.8 80 20 121/85 97 Room Air Capillary Refill : Less Than 3 Seconds General Appearance: Anxious Neck: Normal Inspection Respiratory: Lungs Clear Cardiovascular: Regular Rate, Rhythm Gastrointestinal: non tender, soft Extremity: Normal Inspection Neurologic/Psychiatric: Alert, Oriented x3 Skin: Warm/Dry Other comments Drain intact with minimal purulent output Results Lab Microbiology 06/10/17 Blood Culture - Preliminary, Resulted No growth 06/13/17 Gram Stain - Final, Resulted 06/13/17 Anaerobic Culture, Resulted Pending 06/13/17 Surgical Culture - Preliminary, Resulted Gram Negative Nick Assessment/Plan Assessment/Plan Assess & Plan/Chief Complaint gentleman with complicated sigmoid diverticulitis. We'll continue IV antibiotics and monitor closely. Will discuss with our interventional radiologist, regarding any intervention for percutaneous drainage. complicated sigmoid diverticulitis. We'll repeat a CT scan tomorrow. If no drainable abscess encountered, slowly advance diet. complicated sigmoid diverticulitis. Will review CT scan. If defined abscess encountered, percutaneous drainage would be arranged. Pericolic abscess due to diverticular perforation. Will advance diet slowly. If continues to improve, will discharge in 48 hours with outpatient IV antibiotics. Final Diagnosis Sigmoid diverticulitis with pericolic abscess Clinical Quality Measures DVT/VTE Risk/Contraindication: Risk Factor Score Per Nursin RFS Level Per Nursing on Admit: 2=Moderate GARTH HERNANDEZ MD Jun 14, 2017 12:16 pm
[2017-06-14 16:00] VITALS: BP 133/88
[2017-06-15] VITALS: BP 125/80
[2017-06-15] MEDS: PIPERACILLIN SODIUM/TAZOBACTAM 4.5 GM in NS (IVPB) 100 ML IV SCH ×3 (02:54→17:53)
[2017-06-15 08:00] VITALS: BP 120/85
[2017-06-15] MEDS: D5 1/2 NS W/KCL 10 MEQ/L 1,000 ML IV SCH (08:29)
[2017-06-15] MEDS: PANTOPRAZOLE 40 MG/10 ML (PROTONIX) VIAL IV SCH (08:29)
[2017-06-15] MEDS: CATHETER FLUSH 10 ML SYR IV SCH ×2 (08:29→22:00)
[2017-06-15] MEDS ORDERED: CATHETER FLUSH 10 ML SYR IV PRN (15:15)
[2017-06-15 16:12] VITALS: BP 122/84
--- NOTE | 2017-06-15 18:36 | Progress Note (SOAP) ---
Subjective Date Seen by Provider: Jun 15, 2017 Time Seen by Provider: 15:10 Subjective/Events-last exam abdominal pain almost resolved. Minimal output from the drain. Escherichia coli cultured, sensitive to Zosyn and cephalosporins. Review of Systems General: No Chills, No Night Sweats, No Fatigue, No Malaise HEENT: No Head Aches, No Eye Pain, No Ear Pain, No Dysphasia, No Sinus Congestion, No Post Nasal Drip, No Sore Throat Pulmonary: No Dyspnea, No Cough, No Pleuritic Chest Pain Cardiovascular: No: Chest Pain, Palpitations, Orthopnea, Paroxysmal Noc. Dyspnea, Edema, Lt Headedness Gastrointestinal: No: Nausea, Vomiting, Abdominal Pain, Diarrhea, Constipation , Melena, Hematochezia Genitourinary: No Dysuria, No Frequency, No Incontinence, No Hematuria, No Retention Musculoskeletal: No: other, neck pain, shoulder pain, arm pain, back pain, hand pain, leg pain, foot pain Neurological: No: Weakness, Numbness, Incoordination, Change in speech, Confusion, Seizures, Other Objective Exam Vital Signs Date Time Temp Pulse Resp B/P (MAP) Pulse Ox O2 Delivery O2 Flow Rate FiO2 06/15/17 16:12 97.1 71 20 122/84 96 Room Air 06/15/17 08:00 98.8 79 18 120/85 95 Room Air 06/15/17 00:00 97.1 79 18 125/80 97 Room Air I & O 06/16/17 07:00 Intake Total 2740 ml Output Total 0 ml Balance 2740 ml Capillary Refill : Less Than 3 Seconds General Appearance: No Apparent Distress HEENT: Normal ENT Inspection Neck: Normal Inspection Gastrointestinal: soft Extremity: Normal Inspection Neurologic/Psychiatric: Alert, Oriented x3 Skin: Warm/Dry Other comments suprapubic tenderness resolved. Results Lab Microbiology 06/10/17 Blood Culture - Preliminary, Resulted No growth 06/13/17 Gram Stain - Final, Resulted 06/13/17 Anaerobic Culture, Resulted Pending 06/13/17 Surgical Culture - Preliminary, Resulted Escherichia Coli Assessment/Plan Assessment/Plan Assess & Plan/Chief Complaint gentleman with complicated sigmoid diverticulitis. We'll continue IV antibiotics and monitor closely. Will discuss with our interventional radiologist, regarding any intervention for percutaneous drainage. complicated sigmoid diverticulitis. We'll repeat a CT scan tomorrow. If no drainable abscess encountered, slowly advance diet. complicated sigmoid diverticulitis. Will review CT scan. If defined abscess encountered, percutaneous drainage would be arranged. Pericolic abscess due to diverticular perforation. Will advance diet slowly. If continues to improve, will discharge in 48 hours with outpatient IV antibiotics. sigmoid diverticulitis with perforation and pericolic abscess. Percutaneous drainage performed. Discharge home tomorrow with outpatient IV antibiotics for a week. Follow-up CT scan in 3-4 days. Advance diet. Final Diagnosis sigmoid diverticulitis with pericolic abscess Clinical Quality Measures DVT/VTE Risk/Contraindication: Risk Factor Score Per Nursin RFS Level Per Nursing on Admit: 2=Moderate GARTH HERNANDEZ MD Jun 15, 2017 6:36 pm
--- NOTE | 2017-06-15 19:45 | Discharge Inst-Simple/Standard ---
Discharge Inst-Standard Discharge Medications New, Converted or Re-Newed RX: Other Patient Instructions/Follow Up Plan of Care/Instructions/FU: Please leave IV access intact. To come to outpatient surgery once a day for 7 days and receive 1 g of Rocephin and 1 g of Flagyl IV Follow-up CT scan on Saturday, that would be arranged by my office staff as an outpatient Activity as Tolerated: No Goal: Off work Discharge Diet: Soft Diet GARTH HERNANDEZ MD Jun 15, 2017 7:45 pm
[2017-06-16] VITALS: BP 129/83
[2017-06-16] MEDS: PIPERACILLIN SODIUM/TAZOBACTAM 4.5 GM in NS (IVPB) 100 ML IV SCH ×2 (02:27→08:58)
[2017-06-16] MEDS: CATHETER FLUSH 10 ML SYR IV SCH (06:16)
[2017-06-16 07:33] VITALS: BP 108/72
[2017-06-16] MEDS: PANTOPRAZOLE 40 MG/10 ML (PROTONIX) VIAL IV SCH (08:59)
--- NOTE | 2017-06-16 12:58 | Progress Note (SOAP) ---
Subjective Date Seen by Provider: Jun 16, 2017 Time Seen by Provider: 11:50 Subjective/Events-last exam asymptomatic. Passing soft stools with no diarrhea. Output from the drain very minimal. Review of Systems General: No Chills, No Night Sweats, No Fatigue, No Malaise HEENT: No Head Aches, No Eye Pain, No Ear Pain, No Dysphasia, No Sinus Congestion, No Post Nasal Drip, No Sore Throat Pulmonary: No Dyspnea, No Cough, No Pleuritic Chest Pain Cardiovascular: No: Chest Pain, Palpitations, Orthopnea, Paroxysmal Noc. Dyspnea, Edema, Lt Headedness Gastrointestinal: No: Nausea, Vomiting, Abdominal Pain, Diarrhea, Constipation , Melena, Hematochezia, Other Genitourinary: No Dysuria, No Frequency, No Incontinence, No Hematuria, No Retention Musculoskeletal: No: other, neck pain, shoulder pain, arm pain, back pain, hand pain, leg pain, foot pain Neurological: No: Weakness, Numbness, Incoordination, Change in speech, Confusion, Seizures, Other Objective Exam Vital Signs Date Time Temp Pulse Resp B/P (MAP) Pulse Ox O2 Delivery O2 Flow Rate FiO2 06/16/17 07:45 Room Air 06/16/17 07:33 98.5 78 18 108/72 95 Room Air 06/16/17 00:00 97.7 77 20 129/83 96 Room Air 06/15/17 20:00 Room Air 06/15/17 16:12 97.1 71 20 122/84 96 Room Air Capillary Refill : Less Than 3 Seconds General Appearance: No Apparent Distress Neck: Normal Inspection Respiratory: Lungs Clear Cardiovascular: Regular Rate, Rhythm Gastrointestinal: non tender, soft Extremity: Normal Inspection Neurologic/Psychiatric: Oriented x3 Skin: Warm/Dry Results Lab Microbiology 06/10/17 Blood Culture - Preliminary, Resulted No growth 06/13/17 Gram Stain - Final, Resulted 06/13/17 Anaerobic Culture, Resulted Pending 06/13/17 Surgical Culture - Preliminary, Resulted Escherichia Coli Assessment/Plan Assessment/Plan Assess & Plan/Chief Complaint gentleman with complicated sigmoid diverticulitis. We'll continue IV antibiotics and monitor closely. Will discuss with our interventional radiologist, regarding any intervention for percutaneous drainage. complicated sigmoid diverticulitis. We'll repeat a CT scan tomorrow. If no drainable abscess encountered, slowly advance diet. complicated sigmoid diverticulitis. Will review CT scan. If defined abscess encountered, percutaneous drainage would be arranged. Pericolic abscess due to diverticular perforation. Will advance diet slowly. If continues to improve, will discharge in 48 hours with outpatient IV antibiotics. sigmoid diverticulitis with perforation and pericolic abscess. Percutaneous drainage performed. Discharge home tomorrow with outpatient IV antibiotics for a week. Follow-up CT scan in 3-4 days. Advance diet. sigmoid diverticulitis with a pericolic abscess. Minimal output from the percutaneous drain. Could be discharged home on once a day IV antibiotics. Follow-up CT scan in 2 days. Final Diagnosis sigmoid diverticulitis with microperforation. Pericolic abscess. Clinical Quality Measures DVT/VTE Risk/Contraindication: Risk Factor Score Per Nursin RFS Level Per Nursing on Admit: 2=Moderate GARTH HERNANDEZ MD Jun 16, 2017 12:58 pm
--- NOTE | 2017-06-16 13:00 | Discharge Summary ---
Diagnosis/Chief Complaint Date of Admission Jun 10, 2017 at 8:15 pm Date of Discharge 06/16/17 Discharge Date: Jun 16, 2017 Discharge Time: 12:58 Admission Diagnosis Admission Diagnosis sigmoid diverticulitis with microperforation Discharge Diagnosis sigmoid diverticulitis with microperforation Pericolic abscess Reason Hospital Visit increasing lower abdominal pain over the past 48 hours, resulting in ER visit. CT scan confirms complicated sigmoid diverticulitis with microperforation and an early pelvic abscess.managed with IV antibiotics and a follow-up CT scan confirmed a defined pericolic abscess, that was drained percutaneously, under CT guidance. Cultures have grown Escherichia coli. He has become afebrile and reports very minimal symptoms at the time of discharge. She will receive intravenous Rocephin and Flagyl on once a day basis for another 7 days. In the meantime, a follow-up CT scan will be performed on Saturday the for reassessment. If the abscess is completely resolved, the drain will be removed. If on the other hand, additional abscesses are encountered, further drainage would be required and I have made him aware of. Discharge Summary Procedures percutaneous drainage under CT guidance by the radiologist Discharge Physical Examination Allergies: Coded Allergies: No Known Drug Allergies (Unverified , 06/10/17) Vitals & I&Os Vital Signs Date Time Temp Pulse Resp B/P (MAP) Pulse Ox O2 Delivery O2 Flow Rate FiO2 06/16/17 07:45 Room Air 06/16/17 07:33 98.5 78 18 108/72 95 06/14/17 01:10 2.00 Hospital Course Labs (last 24 hrs) Laboratory Tests 06/10/17 18:52: White Blood Count 21.4H, Red Blood Count 5.41, Hemoglobin 16.0, Hematocrit 46, Mean Corpuscular Volume 85, Mean Corpuscular Hemoglobin 30, Mean Corpuscular Hemoglobin Concent 35, Red Cell Distribution Width 13.5, Platelet Count 205, Mean Platelet Volume 12.0H, Neutrophils (%) (Auto) 90H, Lymphocytes (%) (Auto) 5L, Monocytes (%) (Auto) 4, Eosinophils (%) (Auto) 0, Basophils (%) (Auto) 0, Neutrophils # (Auto) 19.4H, Lymphocytes # (Auto) 1.1, Monocytes # (Auto) 1.0, Eosinophils # (Auto) 0.0, Basophils # (Auto) 0.0, Neutrophils % (Manual) 82, Lymphocytes % (Manual) 8, Monocytes % (Manual) 3, Eosinophils % (Manual) 0, Basophils % (Manual) 0, Band Neutrophils 7, Blood Morphology Comment NORMAL, Sodium Level 136, Potassium Level 3.6, Chloride Level 103, Carbon Dioxide Level 22, Anion Gap 11, Blood Urea Nitrogen 11, Creatinine 0.94, Estimat Glomerular Filtration Rate > 60, BUN/Creatinine Ratio 12, Glucose Level 116H, Calcium Level 9.3, Total Bilirubin 1.8H, Aspartate Amino Transf (AST/SGOT) 13, Alanine Aminotransferase (ALT/SGPT) 16, Alkaline Phosphatase 60, Total Protein 7.1, Albumin 3.7, Amylase Level 30, Lipase 9 06/10/17 19:02: Lactic Acid Level 0.97 06/10/17 21:41: Urine Color YELLOW, Urine Clarity CLEAR, Urine pH 7, Urine Specific [place] 1.005L, Urine Protein 2+H, Urine Glucose (UA) NEGATIVE, Urine Ketones 3+H, Urine Nitrite NEGATIVE, Urine Bilirubin NEGATIVE, Urine Urobilinogen 4H, Urine Leukocyte Esterase NEGATIVE, Urine RBC (Auto) 3+H, Urine RBC 5-10H, Urine WBC 0- 2, Urine Crystals NONE, Urine Bacteria NONE, Urine Casts NONE, Urine Mucus NEGATIVE, Urine Culture Indicated NO 06/11/17 06:15: White Blood Count 16.8H, Red Blood Count 5.11, Hemoglobin 15.2, Hematocrit 44, Mean Corpuscular Volume 86, Mean Corpuscular Hemoglobin 30, Mean Corpuscular Hemoglobin Concent 35, Red Cell Distribution Width 13.6, Platelet Count 183, Mean Platelet Volume 12.2H, Neutrophils (%) (Auto) 91H, Lymphocytes (%) (Auto) 4L, Monocytes (%) (Auto) 4, Eosinophils (%) (Auto) 0, Basophils (%) (Auto) 0, Neutrophils # (Auto) 15.3H, Lymphocytes # (Auto) 0.7L, Monocytes # (Auto) 0.7, Eosinophils # (Auto) 0.0, Basophils # (Auto) 0.0, Sodium Level 138, Potassium Level 3.8, Chloride Level 106, Carbon Dioxide Level 23, Anion Gap 9, Blood Urea Nitrogen 8, Creatinine 0.87, Estimat Glomerular Filtration Rate > 60, BUN/ Creatinine Ratio 9, Glucose Level 154H, Calcium Level 8.9, Total Bilirubin 1.8H , Aspartate Amino Transf (AST/SGOT) 12, Alanine Aminotransferase (ALT/SGPT) 12, Alkaline Phosphatase 66, Total Protein 6.3L, Albumin 3.3 06/13/17 09:45: White Blood Count 10.2, Red Blood Count 4.77, Hemoglobin 14.3, Hematocrit 41, Mean Corpuscular Volume 86, Mean Corpuscular Hemoglobin 30, Mean Corpuscular Hemoglobin Concent 35, Red Cell Distribution Width 13.3, Platelet Count 263, Mean Platelet Volume 10.9H, Neutrophils (%) (Auto) 79H, Lymphocytes (%) (Auto) 12, Monocytes (%) (Auto) 7, Eosinophils (%) (Auto) 2, Basophils (%) (Auto) 0, Neutrophils # (Auto) 8.1H, Lymphocytes # (Auto) 1.2, Monocytes # (Auto) 0.7, Eosinophils # (Auto) 0.2, Basophils # (Auto) 0.0 Microbiology 06/10/17 Blood Culture - Preliminary, Resulted No growth 06/13/17 Gram Stain - Final, Resulted 06/13/17 Anaerobic Culture, Resulted Pending 06/13/17 Surgical Culture - Preliminary, Resulted Escherichia Coli Pending Labs Microbiology Date/Time Source Procedure Growth Status 06/10/17 19:04 Peripheral Lt Ac Blood Culture - Preliminary No growth Resulted 06/10/17 19:02 Peripheral Rt Ac Blood Culture - Preliminary No growth Resulted 06/13/17 16:43 Body Fluid Pelvic Gram Stain - Final Resulted 06/13/17 16:43 Body Fluid Pelvic Anaerobic Culture Pending Resulted 06/13/17 16:43 Surgical Culture - Preliminary Escherichia Coli Resulted Laboratory Tests 06/10/17 18:52: White Blood Count 21.4, Red Blood Count 5.41, Hemoglobin 16.0, Hematocrit 46, Mean Corpuscular Volume 85, Mean Corpuscular Hemoglobin 30, Mean Corpuscular Hemoglobin Concent 35, Red Cell Distribution Width 13.5, Platelet Count 205, Mean Platelet Volume 12.0, Neutrophils (%) (Auto) 90, Lymphocytes (%) (Auto) 5, Monocytes (%) (Auto) 4, Eosinophils (%) (Auto) 0, Basophils (%) (Auto) 0, Neutrophils # (Auto) 19.4, Lymphocytes # (Auto) 1.1, Monocytes # (Auto) 1.0, Eosinophils # (Auto) 0.0, Basophils # (Auto) 0.0, Neutrophils % (Manual) 82, Lymphocytes % (Manual) 8, Monocytes % (Manual) 3, Eosinophils % (Manual) 0, Basophils % (Manual) 0, Band Neutrophils 7, Blood Morphology Comment NORMAL, Sodium Level 136, Potassium Level 3.6, Chloride Level 103, Carbon Dioxide Level 22, Anion Gap 11, Blood Urea Nitrogen 11, Creatinine 0.94, Estimat Glomerular Filtration Rate > 60, BUN/Creatinine Ratio 12, Glucose Level 116, Calcium Level 9.3, Total Bilirubin 1.8, Aspartate Amino Transf (AST/SGOT) 13, Alanine Aminotransferase (ALT/SGPT) 16, Alkaline Phosphatase 60, Total Protein 7.1, Albumin 3.7, Amylase Level 30, Lipase 9 06/10/17 19:02: Lactic Acid Level 0.97 06/10/17 21:41: Urine Color YELLOW, Urine Clarity CLEAR, Urine pH 7, Urine Specific [place] 1.005, Urine Protein 2+, Urine Glucose (UA) NEGATIVE, Urine Ketones 3+, Urine Nitrite NEGATIVE, Urine Bilirubin NEGATIVE, Urine Urobilinogen 4, Urine Leukocyte Esterase NEGATIVE, Urine RBC (Auto) 3+, Urine RBC 5-10, Urine WBC 0-2 , Urine Crystals NONE, Urine Bacteria NONE, Urine Casts NONE, Urine Mucus NEGATIVE, Urine Culture Indicated NO 06/11/17 06:15: White Blood Count 16.8, Red Blood Count 5.11, Hemoglobin 15.2, Hematocrit 44, Mean Corpuscular Volume 86, Mean Corpuscular Hemoglobin 30, Mean Corpuscular Hemoglobin Concent 35, Red Cell Distribution Width 13.6, Platelet Count 183, Mean Platelet Volume 12.2, Neutrophils (%) (Auto) 91, Lymphocytes (%) (Auto) 4, Monocytes (%) (Auto) 4, Eosinophils (%) (Auto) 0, Basophils (%) (Auto) 0, Neutrophils # (Auto) 15.3, Lymphocytes # (Auto) 0.7, Monocytes # (Auto) 0.7, Eosinophils # (Auto) 0.0, Basophils # (Auto) 0.0, Sodium Level 138, Potassium Level 3.8, Chloride Level 106, Carbon Dioxide Level 23, Anion Gap 9, Blood Urea Nitrogen 8, Creatinine 0.87, Estimat Glomerular Filtration Rate > 60, BUN/ Creatinine Ratio 9, Glucose Level 154, Calcium Level 8.9, Total Bilirubin 1.8, Aspartate Amino Transf (AST/SGOT) 12, Alanine Aminotransferase (ALT/SGPT) 12, Alkaline Phosphatase 66, Total Protein 6.3, Albumin 3.3 06/13/17 09:45: White Blood Count 10.2, Red Blood Count 4.77, Hemoglobin 14.3, Hematocrit 41, Mean Corpuscular Volume 86, Mean Corpuscular Hemoglobin 30, Mean Corpuscular Hemoglobin Concent 35, Red Cell Distribution Width 13.3, Platelet Count 263, Mean Platelet Volume 10.9, Neutrophils (%) (Auto) 79, Lymphocytes (%) (Auto) 12 , Monocytes (%) (Auto) 7, Eosinophils (%) (Auto) 2, Basophils (%) (Auto) 0, Neutrophils # (Auto) 8.1, Lymphocytes # (Auto) 1.2, Monocytes # (Auto) 0.7, Eosinophils # (Auto) 0.2, Basophils # (Auto) 0.0 Discharge Home Medications: Active Scripts Active Reported Advil (Ibuprofen) 200 Mg Tablet 600-800 Mg PO TID PRN TAKES 3-4 (200MG) TABLETS Instructions to patient/family Please see electronic discharge instructions given to patient. Clinical Quality Measures DVT/VTE Risk/Contraindication: Risk Factor Score Per Nursin RFS Level Per Nursing on Admit: 2=Moderate GARTH HERNANDEZ MD Jun 16, 2017 1:00 pm
[2017-06-16 13:33] VITALS: BP 108/72
== END 2017-06-16 13:41 | disposition home or self-care (01) | DRG 392 ==
LOC: EDUNIT# 17:58 → ER 18:01 → 4TH 20:15
PROVIDERS: ADMIT Surgery; ATTEND Surgery
PROC: 0W9J30Z Drainage of Pelvic Cavity with Drainage Device, Percutaneous Approach (ICD-10-PCS; principal; 2017-06-13)
DX: K57.20 Diverticulitis of large intestine with perforation and abscess without bleeding (principal); F17.220 Nicotine dependence, chewing tobacco, uncomplicated; Z86.14 Personal history of Methicillin resistant Staphylococcus aureus infection
CPT/HCPCS: 36415; 74022; 74177; 77012; 80053; 81000; 82150; 83605; 83690; 85007; 85025; 85027; 87040; 87070; 87075; 87077; 87186; 87205; 96361; 96365; 96375

== ENCOUNTER → 2017-06-18 | Outpatient (CLI) | payer BC ==
[~2017-06-18] MED LIST: BARIUM SUSPENSION 2.1% (VANILLA SILQ) 450 ML PO ONE; CATHETER FLUSH 10 ML SYR IV PRN; IBUP-30 PO; IOHEXOL 350 MG/ML 100 ML (OMNIPAQUE 350) VIAL IV ONE; NS 100 ML (IVPB) BAG IV ONE
--- NOTE | 2017-06-18 14:52 | Diagnostic Imaging Report ---
PROCEDURE: CT abdomen and pelvis with contrast. TECHNIQUE: Multiple contiguous axial images were obtained through the abdomen and pelvis after administration of intravenous contrast. INDICATION: Followup abscess. 100 mL of Omnipaque 350 is administered intravenously. COMPARISON: 06/13/17. FINDINGS: The lung bases appear clear. The liver, gallbladder, the pancreas, adrenals, and the spleen appear unremarkable. The kidneys have symmetric enhancement and contrast excretion. There is no hydronephrosis. There is improvement in the inflammation in the sigmoid colon with remaining thickening and pericolonic stranding, however. In the proximal aspect of the descending colon, there is an area of increased thickening and pericolonic stranding new from the prior exam of 06/13/2017 compatible with mild diverticulitis. The previously seen abscess between the bladder and undersurface of the sigmoid colon is smaller with minimal amount of remaining fluid and air bubble seen around the drain. There is a 2.6 x 1.7 cm upper posterior pelvic fluid collection similar to the previous study of 06/13/17. Another previously seen fluid collection deep to an ileal loop is resolved at this time. The abdominal aorta is normal in caliber. No para-aortic significantly enlarged lymph node is seen. There is a small fat-containing umbilical hernia. The osseous structures demonstrate degenerative changes in the mid and lower lumbar spine and SI joints. IMPRESSION: 1. New focal area of mild diverticulitis in the proximal descending colon. 2. Mild improvement in the previously seen sigmoid diverticulitis. There is minimal fluid and air bubble seen at the previously seen abscess site near the undersurface of the sigmoid colon at the site of the drain in place. 3. Stable 2.6 cm fluid collection with an air-fluid level at the posterior right side aspect of the upper pelvis. Dictated by: Dictated on workstation # [id number]
== END ==
LOC: RAD 11:33
PROVIDERS: ATTEND Surgery
DX: K57.32 Diverticulitis of large intestine without perforation or abscess without bleeding (principal); K63.0 Abscess of intestine
CPT/HCPCS: 74177

== ENCOUNTER 2017-06-22 09:48 | Outpatient (RCR) | payer BC ==
[2017-06-17 08:00] VITALS: BP 121/79
[2017-06-17] MEDS: cefTRIAXone 1 GM/NS 50 ML IVPB IV SCH ×2 (08:20)
[2017-06-17] MEDS: metroNIDAZOLE 500MG/100ML IVPB 200 ML IV SCH (08:35)
[2017-06-18] MEDS: metroNIDAZOLE 500MG/100ML IVPB 200 ML IV SCH (08:09)
[2017-06-18] MEDS: cefTRIAXone 1 GM/NS 50 ML IVPB IV SCH ×2 (08:10)
[2017-06-18 09:10] VITALS: BP 113/79
--- NOTE | 2017-06-18 11:52 | Physician Query-Final Dx ---
LAYO KRUSE 06/18/17 1152: Clinic Account Progress/Dx Physician Query: Please give a diagnosis for the Rocephin and Flagyl treatment thank you Date of Service Jun 18, 2017 at 07:52 GARTH HERNANDEZ MD 06/18/17 1905: Clinic Account Progress/Dx DIAGNOSIS: Diagnosis Sigmoid diverticulitis with jovon-colic abscess LAYO KRUSE Jun 18, 2017 11:52 GARTH HERNANDEZ MD Jun 18, 2017 19:05
[2017-06-19 08:10] VITALS: BP 102/76
[2017-06-19] MEDS: metroNIDAZOLE 500MG/100ML IVPB 200 ML IV SCH (08:26)
[2017-06-19] MEDS: cefTRIAXone 1 GM/NS 50 ML IVPB IV SCH ×2 (08:26)
[2017-06-20 08:00] VITALS: BP 120/92
[2017-06-20] MEDS: cefTRIAXone 1 GM/NS 50 ML IVPB IV SCH ×2 (08:05)
[2017-06-20] MEDS: metroNIDAZOLE 500MG/100ML IVPB 200 ML IV SCH (08:05)
[2017-06-21] MEDS: cefTRIAXone 1 GM/NS 50 ML IVPB IV SCH ×2 (08:25)
[2017-06-21] MEDS: metroNIDAZOLE 500MG/100ML IVPB 200 ML IV SCH (08:25)
[2017-06-21 08:26] VITALS: BP 119/76
[2017-06-21 09:42] VITALS: BP 119/76
[~2017-06-22] VITALS: Ht 176.5 cm; Wt 99.1 kg
[~2017-06-22 09:48] MED LIST changes: -BARIUM SUSPENSION 2.1% (VANILLA SILQ) 450 ML PO ONE; -CATHETER FLUSH 10 ML SYR IV PRN; -IOHEXOL 350 MG/ML 100 ML (OMNIPAQUE 350) VIAL IV ONE; +NS (IVPB) 50 ML ONE; -NS 100 ML (IVPB) BAG IV ONE; +cefTRIAXone 1 GM (ROCEPHIN) VIAL ONE; +metroNIDAZOLE 500MG/100ML IVPB 100 ML ONE
[2017-06-22] MEDS: metroNIDAZOLE 500MG/100ML IVPB 200 ML IV SCH (10:16)
[2017-06-22] MEDS: cefTRIAXone 1 GM/NS 50 ML IVPB IV SCH ×2 (10:17)
[2017-06-22 10:25] VITALS: BP 111/75
[2017-06-22 10:41] VITALS: BP 111/75
[2017-06-22 11:16] VITALS: BP 111/75
[2017-06-23 09:15] VITALS: BP 106/83
[2017-06-23] MEDS: cefTRIAXone 1 GM/NS 50 ML IVPB IV SCH ×2 (09:23)
[2017-06-23] MEDS: metroNIDAZOLE 500MG/100ML IVPB 200 ML IV SCH (09:23)
== END 2017-09-15 | disposition home or self-care (01) ==
LOC: SDC 09:48
PROVIDERS: ATTEND Surgery
DX: K57.20 Diverticulitis of large intestine with perforation and abscess without bleeding (principal)
CPT/HCPCS: 76937; 96365; 96367; 99211

== ENCOUNTER 2017-07-11 05:41 | Outpatient (CLI) | payer BC ==
[~2017-07-11] VITALS: Ht 176.5 cm; Wt 96.4 kg
[~2017-07-11 05:41] MED LIST changes: -NS (IVPB) 50 ML ONE; -cefTRIAXone 1 GM (ROCEPHIN) VIAL ONE; -metroNIDAZOLE 500MG/100ML IVPB 100 ML ONE
== END 2017-07-11 10:21 ==
LOC: PREOP 05:41
PROVIDERS: ATTEND Surgery
DX: Z01.818 Encounter for other preprocedural examination (principal); K57.20 Diverticulitis of large intestine with perforation and abscess without bleeding

== ENCOUNTER 2017-07-18 09:08 | Day surgery (SDC) | payer BC ==
[~2017-07-18] VITALS: Ht 176.5 cm; Wt 96.4 kg
[2017-07-18 09:15] VITALS: BP 114/77
[2017-07-18] MEDS ORDERED: NS IV 500 ML 500 ML IV PRN (09:15)
--- NOTE | 2017-07-18 10:22 | Conscious Sedation/ASA ---
Conscious Sedation Pre-Proced Time Reviewed: 10:22 ASA Class: 2 Airway Mallampati Classification: ([place] appropriate class) I. II. III, IV Lungs Heart ASA score ASA 1: a normal healthy patient ASA 2: a patient with a mild systemic disease (mid diabetes, controlled hypertension, obesity ASA 3: a patient with a severe systemic disease that limits activity (angina , COPD, prior Myocardial infarction) ASA 4: a patient with an incapacitating disease that is a constant threat to life (CHF, renal failure) ASA 5: a moribund patient not expected to survive 24 hrs. (ruptured aneurysm) ASA 6: a declared brain patient whose organs are being harvested. For emergent operations, add the letter E after the classification Grade 1 Sedation Plan: Discussed options with patient/fam Note The patient is an appropriate candidate to undergo the planned procedure, sedation, and anesthesia. The patient immediately re-assessed prior to indication. GARTH HERNANDEZ MD Jul 18, 2017 10:22 am
[2017-07-18] MEDS ORDERED: fentaNYL INJECTION 100 MCG/2 ML AMP ONE (10:47)
[2017-07-18] MEDS ORDERED: MIDAZOLAM 2 MG/2 ML (VERSED) VIAL ONE ×3 (10:48)
[2017-07-18] MEDS: MIDAZOLAM 2 MG/2 ML (VERSED) VIAL IVP PRN ×3 (10:50→10:59)
[2017-07-18] MEDS: fentaNYL INJECTION 100 MCG/2 ML AMP IVP PRN ×2 (10:51→10:56)
--- NOTE | 2017-07-18 11:15 | Discharge Inst-Simple/Standard ---
Discharge Inst-Standard Discharge Medications New, Converted or Re-Newed RX: Other Patient Instructions/Follow Up Plan of Care/Instructions/FU: Follow-up with me in my office in about 3 weeks to discuss sigmoid resection Activity as Tolerated: Yes Discharge Diet: No Restrictions GARTH HERNANDEZ MD Jul 18, 2017 11:15 am
--- NOTE | 2017-07-18 11:15 | Endo Procedure Record ---
Endo Procedure Report Date of Procedure Jul 18, 2017 Surgeon (s) GARTH HRENANDEZ MD Post Procedure/Op Diagnosis Resolved sigmoid diverticulitis Procedure Performed Colonoscopy to cecum Description of Procedure Anesthesia Type: Conscious Sedation Specimen(s) collected/removed none Description of the Procedure indication for the procedure: This gentleman suffered complicated sigmoid diverticular disease with pericolic abscess and a contained microperforation about 6 weeks ago. This was managed nonoperatively with antibiotics and percutaneous drainage. He returns today for colonoscopy to assess the extent of diverticular disease and rule out polyps. Informed consent was obtained after reviewing the procedure in detail. Description of the procedure: He was placed in left lateral uterus position and his vital signs were monitored. Conscious sedation was achieved using Versed and fentanyl. Digital rectal examination was unremarkable. The colonoscope was then introduced into the rectum and advanced all the way up to the cecum. The quality about rather suboptimal. There was solid fecal material along the sigmoid colon. Findings: Diverticulosis confined to the sigmoid colon with very minimal erythema. He tolerated the procedure well and was taken back to the nursing area in a stable condition. Impression: Resolved, complicated sigmoid diverticular disease. He will be cleared for elective robotic assisted sigmoid resection in about a month. GARTH HERNANDEZ MD Jul 18, 2017 11:15 am
[2017-07-18 11:25] VITALS: BP 120/78
[2017-07-18 11:55] VITALS: BP 109/82
== END 2017-07-18 12:20 | disposition home or self-care (01) ==
LOC: ENDO 09:08
PROVIDERS: ATTEND Surgery
DX: K57.30 Diverticulosis of large intestine without perforation or abscess without bleeding (principal); E66.9 Obesity, unspecified; Z68.30 Body mass index [BMI] 30.0-30.9, adult